=== PATIENT | male | born 1955 | race Caucasian/White ===

== ENCOUNTER 2020-08-03 05:24 | Day surgery (SDC) | payer MEDICARE, OTHER ==
[2020-08-03] MEDS ORDERED: Acetaminophen 500 MG Tab PO ONE (05:30)
[2020-08-03] MEDS ORDERED: Dextrose 5%-Lactated Ringers 1,000 ML IV SCH (06:00)
[2020-08-03] MEDS ORDERED: Bupivacaine 0.5% 50 ML MDV ONE (06:49)
[2020-08-03] MEDS ORDERED: Lidocaine 1% with EPINEPHrine 1:100,000 50 ML MDV ONE (06:49)
[2020-08-03] MEDS ORDERED: ceFAZolin 2 GM in Premix Bag 1 BAG IV ONE (07:00)
[2020-08-03] MEDS ORDERED: Propofol 200 MG/20 ML SDV ONE ×2 (07:18→07:32)
[2020-08-03] MEDS ORDERED: Midazolam 1 MG/ML 2 ML SDV ONE (07:19)
[2020-08-03] MEDS ORDERED: fentaNYL 100 MCG/2 ML SDV ONE (07:19)
[2020-08-03] MEDS ORDERED: Ketorolac 60 MG/2 ML SDV ONE (07:56)
[2020-08-03] MEDS ORDERED: Acetaminophen/HYDROcodone 325-5 MG Tab PO ONE (09:30)
--- NOTE | 2020-08-10 10:29 | OR ---
DATE OF PROCEDURE: 08/03/2020 SURGEON: Jian Fontanez MD PREOPERATIVE DIAGNOSIS: Right inguinal hernia. POSTOPERATIVE DIAGNOSES: 1. Incarcerated right inguinal hernia. 2. Right ilioinguinal nerve and genital branch of genitofemoral nerve at risk for scar entrapment. OPERATIVE PROCEDURE: Right inguinal exploration with: 1. Repair of incarcerated right inguinal hernia with mesh plug technique (05105). 2. Division of right ilioinguinal nerve (18907). 3. Division of genital branch of genitofemoral nerve (91896). ANESTHESIA: Local plus IV sedation. INDICATIONS FOR PROCEDURE: A 65-year-old male presenting with increasingly symptomatic right inguinal hernia. After preoperative evaluation and discussion, he wished to proceed with inguinal hernia repair with mesh plug technique. Potential risks of procedure including bleeding, infection, injury to underlying viscera, or problems with the hernia becoming recurrent or the mesh becoming infected were gone over. It will often divide a nerve or nerves in the area to avoid chronic postoperative neuropathic pain, which results in some areas of cutaneous anesthesia was also reviewed with the patient, and he wishes to proceed. DESCRIPTION OF PROCEDURE: The patient was taken to the operating room and placed in a supine position. After IV sedation was administered, the abdomen and groin areas were prepped and draped. Right inguinal area was anesthetized with 1% lidocaine mixed with Marcaine. Standard right inguinal incision was made and carried down through the skin and subcutaneous tissue and through the external oblique aponeurosis. Subaponeurotic flaps were then raised superiorly and inferiorly. The cord structures were then mobilized upward and examined. There did not appear to be any indirect component. The hernia in this case was a large direct hernia, which contained some incarcerated perivesical fat. The incision over the transversalis fascia was then made and the area dissected free reducing the hernia contents. An extra-large mesh plug was then selected and placed into the defect and affixed to the Ryan ligament with titanium tacking screws and the underside of the conjoint tendon medially, superiorly, and laterally with horizontal mattress sutures of 2-0 Vicryl stitch. The ilioinguinal nerve and the genital branch of the genitofemoral nerve were both present and visible within the area of the dissection and felt to be at risk for scar entrapment and chronic pain. These were then divided at the far lateral aspect of the incision and the specimen was sent for histologic evaluation. The flat portion of the mesh plug system was then placed across the inguinal floor and sutured lateral to the cord structures with 2-0 Vicryl stitch and medially to the pubic tubercle with a titanium tacking screw. Over this, the external oblique aponeurosis was approximated with 2-0 Vicryl stitch, subcutaneous tissue with 3-0 Vicryl stitch, and the skin with 4-0 Vicryl subcuticular stitch. Dressing was applied. The patient was taken to the recovery room in satisfactory condition. Physician technical support assistant, Shaye Montes PA-C, played an essential role in assisting in this case, helping to position the patient, retract structures as needed as well as suturing and cutting sutures when indicated. Her presence improved patient safety and decreased the operative time. Jian Fontanez MD /[id number]
== END 2020-08-03 10:15 | disposition home or self-care (01) ==
LOC: JP.SDS 05:24
PROVIDERS: ATTEND Surgery
DX: K40.30 Unilateral inguinal hernia, with obstruction, without gangrene, not specified as recurrent (principal); E78.5 Hyperlipidemia, unspecified; I45.10 Unspecified right bundle-branch block; Z88.8 Allergy status to other drugs, medicaments and biological substances; Z79.899 Other long term (current) drug therapy; Z87.891 Personal history of nicotine dependence
CPT/HCPCS: 49507; 88302; A9270; C1713; C1781; J0690; J1885; J2250; J2704; J3010; J3490; J7121